=== PATIENT | female | born 1950 | race Caucasian/White ===

== ENCOUNTER 2018-07-17 11:40 | Day surgery (SDC) | payer MEDICARE, OTHER ==
[~2018-07-17] VITALS: Ht 165.1 cm; Wt 72.3 kg
[~2018-07-17 11:40] MED LIST: ASPI81CH PO; ATEN25 PO; Anastrozole1 GM PO; CALCIT950; CHLO25B; CHOL10002; FISH1000; Flonase 0.05% N16 GM; GLUC500 PO; HYDCHL12.5 PO; Hair, Skin & N1 EACH; MULT50L; OMEP20ER PO; POTA10T; PROBIOTIC1 EAC3; Potassium99 MG PO; SIMV10 PO; TIROSINT50 MCG PO; TOCO400 PO; XYZAL5 MG; ZOLP5 PO
--- NOTE | 2018-07-17 14:15 | NUR ---
07/17/18 1415 Olivia Vargas PT IN SDU AND WITH COMPLAINTS OF PAIN 6-7/10 RIGHT LOWER QUADRANT. STATES SHE WAS PAINFUL PREVIOUSLY, BUT THAT IT IS MORE ACHY NOW. DR RADFORD NOTIFIED, NO ORDERS GIVEN AT THIS TIME. VSS, PT TALKING AND ALERT, TOLERATING PO FLUIDS,WARM BLANKETS PROVIDED. PER PATIENT A HYDA SCAN IS SCHEDULED IN TWO WEEKS. WILL CONTINUE TO MONITOR AND PLAN FOR DISCHARGE WHEN PATIENT IS READY.
== END 2018-07-17 14:25 | disposition home or self-care (01) ==
LOC: ORSCSDS 11:40
PROVIDERS: Surgery
PROC: 0DBK8ZX Excision of Ascending Colon, Via Natural or Artificial Opening Endoscopic, Diagnostic (ICD-10-PCS; principal; 2018-07-17 13:00)
PROC: 0DJ08ZZ Inspection of Upper Intestinal Tract, Via Natural or Artificial Opening Endoscopic (ICD-10-PCS; principal; 2018-07-17 13:00)
DX: K21.0 Gastro-esophageal reflux disease with esophagitis (principal); D12.2 Benign neoplasm of ascending colon; K57.30 Diverticulosis of large intestine without perforation or abscess without bleeding; Z12.11 Encounter for screening for malignant neoplasm of colon; I10 Essential (primary) hypertension; E78.00 Pure hypercholesterolemia, unspecified; E03.9 Hypothyroidism, unspecified; Z79.82 Long term (current) use of aspirin; Z79.899 Other long term (current) drug therapy
CPT/HCPCS: 88305; J2405; J2704; J7120

== ENCOUNTER 2018-08-08 06:11 | Day surgery (SDC) | payer MEDICARE, OTHER ==
[~2018-08-08] VITALS: Ht 165.1 cm; Wt 70.5 kg
== END 2018-08-08 10:22 | disposition home or self-care (01) ==
LOC: ORSCSDS 06:11
PROVIDERS: Surgery
PROC: BF031ZZ Plain Radiography of Gallbladder and Bile Ducts using Low Osmolar Contrast (ICD-10-PCS; principal; 2018-08-08 07:30)
PROC: 0FT44ZZ Resection of Gallbladder, Percutaneous Endoscopic Approach (ICD-10-PCS; principal; 2018-08-08 07:30)
DX: K82.8 Other specified diseases of gallbladder (principal); I10 Essential (primary) hypertension; E03.9 Hypothyroidism, unspecified; K21.9 Gastro-esophageal reflux disease without esophagitis; E78.00 Pure hypercholesterolemia, unspecified; Z79.899 Other long term (current) drug therapy
CPT/HCPCS: 74300; 88304; A9270-GY; C1729; J0330; J1885; J2250; J2405; J2704; J2710; J3010; J7120

== ENCOUNTER 2018-08-10 10:18 | Emergency (ER) | payer MEDICARE, OTHER ==
[~2018-08-10] VITALS: Ht 165.1 cm; Wt 70.3 kg
[2018-08-10 11:03] LABS: BASOPHILS ABSOLUTE AUTO 0.05 K/mm3 (0.00-0.23); BASOPHILS PERCENT AUTO 1 % (0-2); EOSINOPHILS ABSOLUTE AUTO 0.09 K/mm3 (0.00-0.68); EOSINOPHILS PERCENT AUTO 1 % (0-6); Hematocrit 38.1 % (33.0-51.0); Hemoglobin 13.5 g/dL (11.5-16.0); IMMATURE GRAN ABSOLUTE AUTO 0.02 K/mm3 (0.00-0.10); IMMATURE GRAN PERCENT AUTO 0 % (0-1); LYMPHOCYTES ABSOLUTE AUTO 1.06 K/mm3 (0.84-5.20); LYMPHOCYTES PERCENT AUTO 15 % (21-46); MONOCYTES ABSOLUTE AUTO 0.61 K/mm3 (0.16-1.47); MONOCYTES PERCENT AUTO 9 % (4-13); Mean Corpuscular HGB 31.4 pg (26.0-34.0); Mean Corpuscular HGB Conc 35.4 g/dL (31.5-36.5); Mean Corpuscular Volume 89 fL (80-100); Mean Platelet Volume 9.5 fL (9.1-12.4); NEUTROPHILS ABSOLUTE AUTO 5.23 K/mm3 (1.96-9.15); NEUTROPHILS PERCENT AUTO 74 % (41-73); Platelet Count 294 K/mm3 (150-400); RDW Coefficient Variation 13.6 % (11.7-14.2); RDW Standard Deviation 44.2 fL (35.1-46.3); White Blood Cell Count 7.06 K/mm3 (4.00-11.30)
[2018-08-10 11:19] LABS: Alanine Aminotransfer (ALT/SGP 41 U/L (12-78); Albumin, Blood 3.9 g/dL (3.4-5.0); Albumin/Globulin Ratio 1.1 (0.8-1.8); Alk Phos 51 U/L (50-136); Anion Gap 8 mmol/L (6-16); Aspartate Aminotrans (AST/SGOT 33 U/L (12-37); Bilirubin, Total 0.9 mg/dL (0.1-1.0); Blood Urea Nitrogen 5 mg/dL (8-24); Bun/Creatinine Ratio 7.7 (12.0-20.0); CO2, Blood 33 mmol/L (21-32); Calcium, Blood 9.2 mg/dL (8.5-10.1); Chloride, Blood 86 mmol/L (98-108); Creatinine, Blood 0.65 mg/dL (0.40-1.00); Globulin, Blood 3.5 g/dL (2.2-4.0); Glomerular Filtration Rate >60 (60-); Glucose, Blood 110 mg/dL (70-99); Sodium, Blood 127 mmol/L (136-145); Total Protein, Blood 7.4 g/dL (6.4-8.2)
== END 2018-08-10 12:56 | disposition home or self-care (01) ==
LOC: ER 10:18
PROVIDERS: Emergency Medicine
DX: G89.18 Other acute postprocedural pain (principal); R10.11 Right upper quadrant pain; M25.511 Pain in right shoulder; Z88.2 Allergy status to sulfonamides; Z88.5 Allergy status to narcotic agent; Z88.8 Allergy status to other drugs, medicaments and biological substances; Z88.1 Allergy status to other antibiotic agents; Z79.899 Other long term (current) drug therapy; Z79.82 Long term (current) use of aspirin; Z85.3 Personal history of malignant neoplasm of breast; E03.9 Hypothyroidism, unspecified; I10 Essential (primary) hypertension; E78.5 Hyperlipidemia, unspecified
CPT/HCPCS: 36415; 74176; 80053; 83690; 85025; 96374; 96375; 99284-25; J2405; J3010

== ENCOUNTER 2019-01-23 06:38 | Day surgery (SDC) | payer MEDICARE, OTHER ==
[~2019-01-23] VITALS: Ht 165.1 cm; Wt 69.8 kg
[2019-01-23] MEDS ORDERED: ANASTROZOLE5 GM (07:12)
== END 2019-01-23 08:29 | disposition home or self-care (01) ==
LOC: ORSCSDS 06:38
PROVIDERS: Ophthalmology
PROC: 08RJ3JZ Replacement of Right Lens with Synthetic Substitute, Percutaneous Approach (ICD-10-PCS; principal; 2019-01-23 08:00)
DX: H25.11 Age-related nuclear cataract, right eye (principal); I10 Essential (primary) hypertension; E03.9 Hypothyroidism, unspecified; Z79.82 Long term (current) use of aspirin; Z79.899 Other long term (current) drug therapy
CPT/HCPCS: J2001; J2250; J3010; J3301; J7120; V2632

== ENCOUNTER 2019-02-20 07:50 | Day surgery (SDC) | payer MEDICARE, OTHER ==
[~2019-02-20] VITALS: Ht 165.1 cm; Wt 71.2 kg
[~2019-02-20 07:50] MED LIST changes: +ANASTROZOLE PO; +ANASTROZOLE5 GM; +ATEN50 PO; +CHLO4 PO; +Coral Calcium1 EAC3 PO; +Fish Oil 10001000 MG PO; +Multiple Vitam1 EACH PO; +OMEPRAZOLE20 MG PO; +POTA10T PO; +PROBIOTIC1 EAC1 PO; +Synthroid/Lev0.05 MG PO; +VITAMIN D32000 UNI3 PO; +VITAMIN E COMPLETE PO; +XYZAL5 MG PO; +Zocor20 MG PO
--- NOTE | 2019-02-20 09:22 | NUR ---
02/20/19 0922 Nevin Kwong IV DCD INTACT, NO BLEEDING , DRESSING APPLIED
== END 2019-02-20 09:35 | disposition home or self-care (01) ==
LOC: ORSCSDS 07:50
PROVIDERS: Ophthalmology
PROC: 08RK3JZ Replacement of Left Lens with Synthetic Substitute, Percutaneous Approach (ICD-10-PCS; principal; 2019-02-20 09:00)
DX: H25.12 Age-related nuclear cataract, left eye (principal); H18.51 Endothelial corneal dystrophy; I10 Essential (primary) hypertension; Z79.899 Other long term (current) drug therapy
CPT/HCPCS: J2001; J2250; J3010; J3301; J7040; V2632

== ENCOUNTER 2020-10-30 07:34 | Day surgery (SDC) | payer MEDICARE, OTHER ==
[~2020-10-30] VITALS: Ht 165.1 cm; Wt 75.6 kg
[2020-10-30] MEDS ORDERED: HYDCHL12.5 PO (08:31)
[2020-10-30] MEDS ORDERED: LORA10ER PO (08:33)
[2020-10-30] MEDS ORDERED: VITAMIN E400 UNIT PO (08:35)
--- NOTE | 2020-10-30 09:36 | NUR ---
10/30/20 0936 Benedicto Bello 0.15ML OF EPI 1MG/ML ADDED TO 30MG OF BUPIVICAINE 0.5% TO CREATE A SOLUTION OF BUPIVICAINE 0.5% WITH EPI 1:200,000.
== END 2020-10-30 10:34 | disposition home or self-care (01) ==
LOC: ORSCSDS 07:34
PROVIDERS: Podiatrist Foot & Ankle Surgery
PROC: 0JBR0ZZ Excision of Left Foot Subcutaneous Tissue and Fascia, Open Approach (ICD-10-PCS; principal; 2020-10-30 08:45)
DX: R22.42 Localized swelling, mass and lump, left lower limb (principal); I10 Essential (primary) hypertension; K21.9 Gastro-esophageal reflux disease without esophagitis; Z79.899 Other long term (current) drug therapy
CPT/HCPCS: 88307; J0171; J1100; J2250; J2405; J2704; J3010; J7120

== ENCOUNTER → 2020-12-28 | Outpatient (CLI) | payer MEDICARE, OTHER ==
[~2020-12-28] MED LIST changes: +LORA10ER PO; +VITAMIN E400 UNIT PO
== END | disposition home or self-care (01) ==
LOC: LAB SHORT 13:25
DX: N39.0 Urinary tract infection, site not specified (principal)
CPT/HCPCS: 87086

== ENCOUNTER → 2021-02-17 | Outpatient (CLI) | payer MEDICARE, OTHER | END | disposition home or self-care (01) | LOC: LAB 13:37 → LAB SHORT 13:37 | DX: R07.89 Other chest pain (principal); R13.10 Dysphagia, unspecified | CPT/HCPCS: 87338 ==

== ENCOUNTER 2021-03-09 10:12 | Day surgery (SDC) | payer MEDICARE, OTHER ==
[~2021-03-09] VITALS: Ht 165.1 cm; Wt 72.8 kg
== END 2021-03-09 12:55 | disposition home or self-care (01) ==
LOC: ORSCSDS 10:12
PROVIDERS: Surgery
PROC: 0DB68ZX Excision of Stomach, Via Natural or Artificial Opening Endoscopic, Diagnostic (ICD-10-PCS; principal; 2021-03-09 11:30)
DX: K21.9 Gastro-esophageal reflux disease without esophagitis (principal); K44.9 Diaphragmatic hernia without obstruction or gangrene; I10 Essential (primary) hypertension; E78.5 Hyperlipidemia, unspecified; E05.90 Thyrotoxicosis, unspecified without thyrotoxic crisis or storm; Z79.899 Other long term (current) drug therapy
CPT/HCPCS: 88305; 88342; J2704; J7120

== ENCOUNTER → 2021-06-18 | Outpatient (CLI) | payer MEDICARE, OTHER | END | disposition home or self-care (01) | LOC: LAB SHORT 13:35 | DX: R30.9 Painful micturition, unspecified (principal) | CPT/HCPCS: 87086 ==

== ENCOUNTER → 2021-11-29 | Outpatient (CLI) | payer MEDICARE | END | disposition home or self-care (01) | LOC: LAB SHORT 12:16 → LAB 12:16 | DX: N39.0 Urinary tract infection, site not specified (principal) | CPT/HCPCS: 87077; 87086; 87186 ==

== ENCOUNTER → 2022-08-23 | Outpatient (CLI) | payer OTHER ==
[~2022-08-23] MED LIST changes: +AMBIEN5 MG PO; +ATEN100 PO; +CALCIUM MAG D PO; +CARV3.125 PO; -Coral Calcium1 EAC3 PO; +EUTHYROX50 MC1 PO; +LOSARTAN POTAS100 M1 PO; -Multiple Vitam1 EACH PO; +ONE DAILY ESS400 MCG PO; +PROBIOTIC PO; -PROBIOTIC1 EAC1 PO; +Simvastatin20 MG PO; +THERA-D2000 UNIT PO
[2022-08-23 11:16] LABS: Albumin, Blood 4.5 g/dL (3.4-5.0); Albumin/Globulin Ratio 1.2 (0.8-1.8); Bilirubin, Total 0.6 mg/dL (0.1-1.0); Bun/Creatinine Ratio 22.1 (12.0-20.0); Calcium, Blood 9.5 mg/dL (8.5-10.1); Creatinine, Blood 0.86 mg/dL (0.40-1.00); Globulin, Blood 3.8 g/dL (2.2-4.0); Potassium, Blood 3.8 mmol/L (3.5-5.5); Total Protein, Blood 8.3 g/dL (6.4-8.2)
== END | disposition home or self-care (01) ==
LOC: LAB 10:59 → LAB SHORT 10:59
PROVIDERS: Family Medicine
DX: R07.9 Chest pain, unspecified (principal)
CPT/HCPCS: 80053; 84484

== ENCOUNTER 2023-02-25 09:08 | Observation (INO) | payer OTHER ==
[~2023-02-25] VITALS: Ht 165.1 cm; Wt 77.0 kg
[2023-02-25] MEDS ORDERED: ATEN25 PO (09:47)
[2023-02-25 09:48] LABS: BASOPHILS ABSOLUTE AUTO 0.08 K/mm3 (0.00-0.23); BASOPHILS PERCENT AUTO 1 % (0-2); EOSINOPHILS ABSOLUTE AUTO 0.08 K/mm3 (0.00-0.68); EOSINOPHILS PERCENT AUTO 1 % (0-6); Hematocrit 39.2 % (33.0-51.0); Hemoglobin 13.9 g/dL (11.5-16.0); IMMATURE GRAN ABSOLUTE AUTO 0.09 K/mm3 (0.00-0.10); IMMATURE GRAN PERCENT AUTO 1 % (0-1); LYMPHOCYTES ABSOLUTE AUTO 1.47 K/mm3 (0.84-5.20); LYMPHOCYTES PERCENT AUTO 14 % (21-46); MONOCYTES ABSOLUTE AUTO 0.97 K/mm3 (0.16-1.47); MONOCYTES PERCENT AUTO 9 % (4-13); Mean Corpuscular HGB 29.2 pg (26.0-34.0); Mean Corpuscular HGB Conc 35.5 g/dL (31.5-36.5); Mean Corpuscular Volume 82 fL (80-100); Mean Platelet Volume 10.1 fL (9.1-12.4); NEUTROPHILS PERCENT AUTO 75 % (41-73); Platelet Count 330 K/mm3 (150-400); RDW Coefficient Variation 13.5 % (11.7-14.2); RDW Standard Deviation 40.5 fL (35.1-46.3); Red Blood Cell Count 4.76 M/mm3 (3.80-5.20); White Blood Cell Count 10.89 K/mm3 (4.00-11.30)
[2023-02-25] MEDS ORDERED: CHLO25B PO (09:48)
[2023-02-25 10:13] LABS: Albumin, Blood 4.1 g/dL (3.4-5.0); Albumin/Globulin Ratio 1.1 (0.8-1.8); Bilirubin, Total 0.5 mg/dL (0.1-1.0); Bun/Creatinine Ratio 15.5 (12.0-20.0); Calcium, Blood 9.3 mg/dL (8.5-10.1); Creatinine, Blood 0.71 mg/dL (0.40-1.00); Globulin, Blood 3.9 g/dL (2.2-4.0); Magnesium, Blood 1.9 mg/dL (1.6-2.4); Potassium, Blood 3.6 mmol/L (3.5-5.5); Thyroid Stimulating Hormone 4.06 uIU/mL (0.360-4.800)
[2023-02-25 13:39] VITALS: BP 133/75
--- NOTE | 2023-02-25 17:17 | NUR ---
ADMIT/SHIFT SUMMARY: PT A&O X4. PLEASANT AND COOPERATIVE WITH CARE. PT ARRIVED TO ROOM 331 @1335 VIA GURNEY. PT ABLE TO TRANSFER TO BED A SB ASSIST. IV IN RAC PATENT. INFUSING 2/2 BAG NS @200/HR. LAB ARRIVED TO ROOM SHORTLY AFTER ADMIT. NA INCREASED FROM 121 TO 126. REPEAT LAB TO BE COMPLETED ON CROZE MACHINE OPERATOR. UR RANDOM SODIUM SENT TO LAB. 24HR URINE STARTED @1515 IN BUCKET WITH ICE IN BATHROOM. TELE IN PLACE RUNNING SINUS RHYHTM IN 60'S. AT BEDSIDE. CALL LIGHT IN REACH. BED IN LOWEST POSITION.
[2023-02-25 20:17] VITALS: BP 125/82
[2023-02-26 03:12] VITALS: BP 133/72
--- NOTE | 2023-02-26 03:36 | NUR ---
SHIFT SUMMARY PT HAS RESTED MOST OF THE NIGHT. SODIUM IS TRENDING UP SLOWLY WITH PM LABS. PT HAS COMPLETED NORMAL SALINE INFUSIONS. SHE REPORTS THAT OVERALL SHE IS FEELING ALOT BETTER. SHE DENIES N/V OR PAIN. VITALS ARE STABLE, 24 HOUR URINE IN PROGRESS. BED IN LOWEST POSITION, CALL LIGHT WITHIN REACH.
[2023-02-26 07:13] VITALS: BP 141/82
[2023-02-26 10:57] LABS: BASOPHILS ABSOLUTE AUTO 0.09 K/mm3 (0.00-0.23); BASOPHILS PERCENT AUTO 1 % (0-2); EOSINOPHILS ABSOLUTE AUTO 0.11 K/mm3 (0.00-0.68); EOSINOPHILS PERCENT AUTO 1 % (0-6); Hematocrit 37.1 % (33.0-51.0); IMMATURE GRAN ABSOLUTE AUTO 0.07 K/mm3 (0.00-0.10); IMMATURE GRAN PERCENT AUTO 1 % (0-1); LYMPHOCYTES ABSOLUTE AUTO 1.63 K/mm3 (0.84-5.20); LYMPHOCYTES PERCENT AUTO 16 % (21-46); MONOCYTES ABSOLUTE AUTO 0.83 K/mm3 (0.16-1.47); MONOCYTES PERCENT AUTO 8 % (4-13); Mean Corpuscular HGB 29.2 pg (26.0-34.0); Mean Corpuscular Volume 83 fL (80-100); Mean Platelet Volume 9.8 fL (9.1-12.4); NEUTROPHILS ABSOLUTE AUTO 7.25 K/mm3 (1.96-9.15); NEUTROPHILS PERCENT AUTO 73 % (41-73); Platelet Count 304 K/mm3 (150-400); RDW Coefficient Variation 13.7 % (11.7-14.2); Red Blood Cell Count 4.45 M/mm3 (3.80-5.20); White Blood Cell Count 9.98 K/mm3 (4.00-11.30)
[2023-02-26 11:09] LABS: Bun/Creatinine Ratio 14.6 (12.0-20.0); Calcium, Blood 8.9 mg/dL (8.5-10.1); Creatinine, Blood 0.62 mg/dL (0.40-1.00); Potassium, Blood 3.9 mmol/L (3.5-5.5)
[2023-02-26 16:10] LABS: Calcium, Urine <5.0 mg/dL (< 17.5)
[2023-02-26 16:12] LABS: Calcium, Urine Calculation Unable to Calculate mg/24hrs (42.0-353.0)
--- NOTE | 2023-02-26 17:43 | NUR ---
DISCHARGE NOTE- PT WAS GIVEN VERBAL ANE WRITTEN DISCHARGE INSTRUCTIONS AND ACKNOWLEDGED UNDERSTANDING OF THEM. NO NEW MEDS. ONE FAVIOLA MED DC'D PT ACKNOWLEDGED THIS WELL. IV AND TELE DC'D PRIOR TO DISCHARGE. 24 HOUR URINE COLLECTION COMPLETED AND TAKEN TO LAB PRIOR TO PT DISCHARGE.
== END 2023-02-26 15:55 | disposition home or self-care (01) ==
LOC: ER 09:08 → MEDS 09:09
PROVIDERS: Emergency Medicine; ADMIT Internal Medicine
DX: E87.1 Hypo-osmolality and hyponatremia (principal); I10 Essential (primary) hypertension; E11.9 Type 2 diabetes mellitus without complications; K21.9 Gastro-esophageal reflux disease without esophagitis; E03.9 Hypothyroidism, unspecified; Z88.5 Allergy status to narcotic agent; Z88.2 Allergy status to sulfonamides; Z88.8 Allergy status to other drugs, medicaments and biological substances; Z79.899 Other long term (current) drug therapy
CPT/HCPCS: 36415; 80048; 80053; 82340; 83735; 84295; 84300; 84443; 85025; 93005; 93010; 96360; 96361; 99284-25; A9270; G0378; J7030

== ENCOUNTER 2024-06-12 11:15 | Day surgery (SDC) | payer OTHER ==
[~2024-06-12 11:15] MED LIST changes: +CALCIUM CIT 311 EAC7 PO; +CHLO25B PO; -EUTHYROX50 MC1 PO; +EUTHYROX75 MC1 PO; +GABA100 PO; +POTCHL20ER PO
--- NOTE | 2024-06-12 11:41 | NUR ---
PT AMB INTO SDS FOR L TKA PER DR. HU. PT CONTACTED DR. HU'S OFFICE YESTERDAY W/ CONCERN OF A RED 2ND TOE ON LEFT FOOT. PT'S FOOT ASSESSED PER THIS RN. TOE VERY RED AT TOP AND AROUND TOE NAIL. NO VISIBLE TRACKING. NO DRAINAGE NOTED EVEN WHEN PT SQUEEZES TOE. PT STATES "IT IS NOT MORE PAINFUL THAN HER OTHER TOES" BUT SHE HAS NEUROPATHY. PHOTO TAKEN W/ PT'S VERBAL PERMISSION AND SHOWN TO DR. HU. CASE CX PT WILL RESCHEDULE W/ OFFICE.
== END 2024-06-12 23:00 | disposition home or self-care (01) ==
LOC: ORSCMMR 11:15
DX: M17.12 Unilateral primary osteoarthritis, left knee (principal); Z53.9 Procedure and treatment not carried out, unspecified reason

== ENCOUNTER 2024-06-26 13:32 | Inpatient (IN) | payer OTHER ==
[~2024-06-26] VITALS: Ht 165.1 cm; Wt 68.4 kg
[2024-06-26 15:07] LABS: BASOPHILS ABSOLUTE AUTO 0.08 K/mm3 (0.00-0.23); BASOPHILS PERCENT AUTO 1 % (0-2); EOSINOPHILS ABSOLUTE AUTO 0.16 K/mm3 (0.00-0.68); EOSINOPHILS PERCENT AUTO 2 % (0-6); Hematocrit 41.5 % (33.0-51.0); Hemoglobin 14.3 g/dL (11.5-16.0); IMMATURE GRAN ABSOLUTE AUTO 0.02 K/mm3 (0.00-0.10); IMMATURE GRAN PERCENT AUTO 0 % (0-1); LYMPHOCYTES ABSOLUTE AUTO 1.75 K/mm3 (0.84-5.20); LYMPHOCYTES PERCENT AUTO 26 % (21-46); MONOCYTES ABSOLUTE AUTO 0.54 K/mm3 (0.16-1.47); MONOCYTES PERCENT AUTO 8 % (4-13); Mean Corpuscular HGB Conc 34.5 g/dL (31.5-36.5); Mean Corpuscular Volume 90 fL (80-100); Mean Platelet Volume 10.5 fL (9.1-12.4); NEUTROPHILS ABSOLUTE AUTO 4.17 K/mm3 (1.96-9.15); NEUTROPHILS PERCENT AUTO 62 % (41-73); Platelet Count 260 K/mm3 (150-400); RDW Coefficient Variation 12.8 % (11.7-14.2); RDW Standard Deviation 41.8 fL (35.1-46.3); Red Blood Cell Count 4.62 M/mm3 (3.80-5.20); White Blood Cell Count 6.72 K/mm3 (4.00-11.30)
[2024-06-26 15:28] LABS: Albumin, Blood 4.4 g/dL (3.4-5.0); Albumin/Globulin Ratio 1.4 (0.8-1.8); Bilirubin, Total 0.4 mg/dL (0.1-1.0); Bun/Creatinine Ratio 25.9 (12.0-20.0); Calcium, Blood 9.7 mg/dL (8.5-10.1); Creatinine, Blood 0.69 mg/dL (0.40-1.00); Globulin, Blood 3.2 g/dL (2.2-4.0); Potassium, Blood 3.8 mmol/L (3.5-5.5); Total Protein, Blood 7.6 g/dL (6.4-8.2)
[2024-06-26] MEDS ORDERED: HydrALAZINE HCl 20 MG / ML 1ML Vial IV ONE (19:45)
[2024-06-26] MEDS ORDERED: Ondansetron HCl 2 MG / ML 2ML Vial IV PRN (20:50)
[2024-06-26] MEDS ORDERED: NS 1,000 ML IV SCH (20:50)
[2024-06-26] MEDS ORDERED: Labetalol HCL 5 MG/ML 4ML Injection (Single Dose) IV PRN (20:55)
[2024-06-26] MEDS ORDERED: Aspirin 81 MG Chew PO SCH (21:00)
[2024-06-26] MEDS ORDERED: Acetaminophen 325 MG TABLET PO PRN (22:55)
[2024-06-26 23:06] VITALS: BP 183/92
[2024-06-27] VITALS (14 sets, daily range): BP systolic 159–209; BP diastolic 88–123
--- NOTE | 2024-06-27 00:43 | NUR ---
Admission note: Patient AOX4, arrived to unit from the ED for CVA and HTN, On Tele, w/ NSR HRs 70's 80's. While arriving to unit, pt complained of a headache w/ a 3/10 pain, consulted doctor for pain managment, see EMAR for further orders. HTN since arrival below threshold for pharmacological intervention, continuing to monitor Pt was reported to have right sided defecits but on assessment pt had reported her symptoms have improved, see shift assessment for further details. 1PA w/ FWW, pt responds appropiately to staff and cooperative with her care. Bed is at appropiate height and call light within reach.
--- NOTE | 2024-06-27 04:31 | NUR ---
REVIEWED AND AGREE WITH ALL CHOCOLATE FINISHER OPERATOR DOCUMENTATION
--- NOTE | 2024-06-27 04:33 | NUR ---
SHIFT SUMMARY. SHIFT HAS GONE WELL OVERALL SINCE ADMISSION. PT HAS BEEN ABLE TO REST COMFORTABLY SINCE ADMISSION, NO ACUTE CHANGES NEURO OR OTHERWISE. BP HAS BEEN ELEVATED THROUGHOUT SHIFT, REMAINS UNDER THRESHHOLD FOR ADMINISTRATION OF LABETALOL. CONTINUING TO MONITOR. REPORTED HEADACHE EARLY IN SHIFT THAT HAS SINCE SUBSIDED. CONTINUES TO RUN SINUS ON TELE. CONTINUES TO MAINTAIN ADEQUATE SATURATION ON ROOM AIR. ADMISSION PROCESS COMPLETED PER PROTOCOL. WORTH NOTING WHEN ASKED ABOUT CURRENT CODE STATUS, PT WAS UNCLEAR ON WHAT SHE WOULD LIKE HER CODE STATUS TO BE AND REPORTED THAT HER PCP REBECCA GARCIA SHOULD HAVE HER CODE STATUS INFORMATION AND RECOMMENDED CALLING HER OFFICE IN THE MORNING SHE DID NOT WANT TO MAKE ANY DECISIONS AT TIME OF QUESTIONING. OKAY WITH KEEPING CODE STATUS IS FOR TIME BEING. OTHERWISE SHIFT HAS BEEN UNREMARKABLE. BED LOCKED IN LOWEST POSITION. CALL LIGHT LEFT WITHIN REACH. CONTINUING TO MONITOR.
--- NOTE | 2024-06-27 05:20 | NUR ---
SPOKE WITH DR. DEJESUS TO NOTIFY THAT HOME MEDICATION LIST HAS BEEN RECONCILED. ALSO INQUIRED ABOUT NEED FOR FLUIDS AND CONTINUED HIGH BP. DR. DEJESUS DCd CONTINUOUS FLUIDS AND ORDERED HOME DOSE LOSARTAN 50 MG BID. ENTERING ORDERS NOW. CONTINUING TO MONITOR.
[2024-06-27] MEDS ORDERED: Omeprazole 20 MG CapCR PO SCH (06:00)
[2024-06-27] MEDS ORDERED: Losartan Potassium 50 MG Tab PO SCH (09:00)
[2024-06-27] MEDS ORDERED: Enoxaparin 40 MG/0.4 ML SYR SC SCH (09:00)
--- NOTE | 2024-06-27 09:01 | NUR ---
NIH SCALE PREFORMED WITH OUTGOING NURSE KEVIN Ramirez. AGREEMENT ON SCALE WITH NIH SCORE-4. KEVIN STATED THERE WERE NO CHANGES IN PHYSICAL/MENTAL IN THE PT'S ASSESSMENT. KEVIN RN STATED IT WAS MISJUDGEMENT IN SCALE. PER PROTOCOL, THIS RN DID NOTIFY DR. MCGRATH OF 2 POINT CHANGE IN THE SCALE AND THIS RN EXPLAINED THE CIRCUMSTANCES. DR. MCGRATH STATED TO REPEAT IN FOUR HOURS POST ASSESSMENT AND CONTINUE TO FOLLOW PROTOCOL. WHILE ON THE PHONE THIS RN ASKED FOR BP PARAMETERS. DR. MCGRATH WOULD LIKE SBP 160-180. SEE NOTES FOR UPDATES.
[2024-06-27] MEDS ORDERED: LORazepam 2 MG/ML 1ML Injection IV ONE (10:35)
[2024-06-27 12:13] LABS: CHOL/HDL RATIO 2.7; Cholesterol 171 mg/dL (50-200); HDL Cholesterol 64 mg/dL (>39); LDL/HDL RATIO 1.3; Low Density Lipoprotein Chol 83 mg/dL (0-110); Triglycerides 120 mg/dL (30-160); Very Low Density Lipoprot Chol 24 mg/dL (6-32)
[2024-06-27] MEDS ORDERED: Acetaminophen 325 MG TABLET PO ONE (14:20)
[2024-06-27] MEDS ORDERED: Pantoprazole Sodium 40 MG Tab PO SCH (16:30)
[2024-06-27] MEDS ORDERED: Diltiazem HCl 180 MG Cap.CD PO SCH (17:00)
--- NOTE | 2024-06-27 17:33 | NUR ---
END OF SHIFT SUMMARY PT IS A&OX4, NIH-4, SLURRED SPEECH AND RIGHT SIDED DRIFT; PER YESICA MARCUS. PT HAS HAD A CONTINUOUS HEADACHE T/O THE SHIFT THAT IS MADE WORSE W/ STIMULATION. PAIN 07/27-10/27. MEDICATIONS PER EMAR. PT IS SR/ST 90'S-100'S ON TELE, W/ FHB. HER BLOOD PRESSURE HAS BEEN ELEVATED WITH A SYSTOLIC IN THE 200S AND DIASTOLIC IN THE 100S. PT HAS A HX OF HTN. YESICA MARCUS SPOKE WITH DR. SCALES AND A PERMISSIVE BP PARAMETER OF SYSTOLIC 160-180 WAS SET, SEE NOTES FOR DETAILS. BP IS BEING MANAGED PER EMAR ORDERS. PT MAINTAINS O2 >90% ON RA, DENIES SOB. PALLIATIVE CARE CAME TO BEDSIDE TO DISCUSS POLST. PT TO REMAIN FULL CODE AMD WILL DISCUSS THIS WITH HER SON WHO IS A DOCTOR 06/28. DR. GONSALEZ CAME TO BEDSIDE AND WOULD LIKE THE PT TO DISCHARGE ON A ZIO PATCH FOR 14 DAYS. PT'S AT BEDSIDE, UPDATED ON CARE.
--- NOTE | 2024-06-27 18:10 | NUR ---
PALLIATIVE CARE NOTE: CALL FROM PRIMARY RN PT WANTS TO DISCUSS COMPLETING A POLST. PT AND SPOUSE CASSIDY IN ROOM. PT IS ABLE TO HAVE MEANINGFUL DISCUSSION. PT HAS ADVANCE DIRECTIVE. MADE A COPY AND SENT TO MEDICAL RECORDS TO BE FILED IN MEDICAL CHART. PT AND SPOUSE EDUCATED ON POLST FORM, CPR VS DNR WITH SELECTIVE VS DNR WITH COMFORT MEASURES. PT WANTS TO WAIT TO DISCUSS CHOICES WITH FAMILY ARRIVING TO [facility] TOMORROW. PT TO REMAIN A FULL CODE.
[2024-06-27] MEDS ORDERED: Gabapentin 100 MG Cap PO SCH (21:00)
[2024-06-27] MEDS ORDERED: Calcium 500 MG/Vit D 200 Units Tab PO SCH (21:00)
[2024-06-28 00:18] VITALS: BP 141/77
[2024-06-28 04:16] LABS: BASOPHILS ABSOLUTE AUTO 0.08 K/mm3 (0.00-0.23); BASOPHILS PERCENT AUTO 1 % (0-2); EOSINOPHILS ABSOLUTE AUTO 0.16 K/mm3 (0.00-0.68); EOSINOPHILS PERCENT AUTO 2 % (0-6); Hematocrit 38.5 % (33.0-51.0); Hemoglobin 13.2 g/dL (11.5-16.0); IMMATURE GRAN ABSOLUTE AUTO 0.01 K/mm3 (0.00-0.10); IMMATURE GRAN PERCENT AUTO 0 % (0-1); LYMPHOCYTES PERCENT AUTO 32 % (21-46); MONOCYTES ABSOLUTE AUTO 0.78 K/mm3 (0.16-1.47); MONOCYTES PERCENT AUTO 12 % (4-13); Mean Corpuscular HGB 30.8 pg (26.0-34.0); Mean Corpuscular HGB Conc 34.3 g/dL (31.5-36.5); Mean Corpuscular Volume 90 fL (80-100); Mean Platelet Volume 10.9 fL (9.1-12.4); NEUTROPHILS ABSOLUTE AUTO 3.43 K/mm3 (1.96-9.15); NEUTROPHILS PERCENT AUTO 52 % (41-73); Platelet Count 253 K/mm3 (150-400); RDW Coefficient Variation 12.9 % (11.7-14.2); RDW Standard Deviation 42.5 fL (35.1-46.3); Red Blood Cell Count 4.29 M/mm3 (3.80-5.20); White Blood Cell Count 6.56 K/mm3 (4.00-11.30)
[2024-06-28 04:27] VITALS: BP 150/75
[2024-06-28 04:46] LABS: Bun/Creatinine Ratio 20.1 (12.0-20.0); Calcium, Blood 9.2 mg/dL (8.5-10.1); Creatinine, Blood 0.65 mg/dL (0.40-1.00); Potassium, Blood 3.5 mmol/L (3.5-5.5); Thyroid Stimulating Hormone 1.09 uIU/mL (0.360-4.800)
--- NOTE | 2024-06-28 05:05 | NUR ---
SHIFT SUMMARY: PT HERE FOR CVA R SIDED DEFICITS, NIHSS SCORE OF 4, PT ENDORSES JONES WITH PRN APA EFFECTIVE FOR RELIE, PERMISSIVE HTN ORDER, PT DID NOT MEET CRITERIA FOR PRN ADMINISTRATION OF B/P MEDICATION, RA LUNGS CLEAR, NSR ON TELE, GEN THIN DIET ABLE TO SWALLOW PILLS WHOLE, SLIGHT SLURRED SPEECH AND WORD FINDING NOTED, PT IS A ONE PERSON FWW TO AND FROM BATHROOM, ABLE TO USE CALL LIGHT AND MAKE HER NEEDS KNOWN, CALL LIGHT AND PERSONAL ITEMS WITH IN REACH AT THIS TIME.
[2024-06-28] MEDS ORDERED: Levothyroxine Sodium 0.075 MG Tab PO SCH (06:00)
[2024-06-28 08:57] VITALS: BP 155/87
[2024-06-28] MEDS ORDERED: Clopidogrel Bisulfate 75 MG Tab PO SCH (09:00)
[2024-06-28] MEDS ORDERED: Atenolol 25 MG Tab PO SCH (09:00)
[2024-06-28] MEDS ORDERED: Potassium Chloride 20 MEQ TabCR PO SCH (09:00)
[2024-06-28] MEDS ORDERED: Atorvastatin 40 MG Tab PO SCH (09:00)
[2024-06-28] MEDS ORDERED: Multivitamins 1 Tab PO SCH (09:00)
[2024-06-28] MEDS ORDERED: Vitamin E 400 Intn'l Units Cap PO SCH (09:00)
[2024-06-28] MEDS ORDERED: Loratadine 10 MG Tab PO SCH (09:00)
[2024-06-28] MEDS ORDERED: Fluticasone 0.05% Nasal Spray SCH (09:00)
[2024-06-28] MEDS ORDERED: ASPI81CH PO (09:48)
[2024-06-28] MEDS ORDERED: ATOR80 PO (09:48)
[2024-06-28] MEDS ORDERED: CLOP75 PO (09:49)
[2024-06-28] MEDS ORDERED: PANT40 PO (09:50)
[2024-06-28] MEDS ORDERED: CARDIZEM CD180 M1 PO (09:50)
[2024-06-28 11:18] VITALS: BP 151/87
--- NOTE | 2024-06-28 12:45 | NUR ---
DISCHARGE SUMMARY PT A&Ox4, CALLS AND COMMUNICATES NEEDS APPROPRIATELY. NHISS 4. PT COOPERATIVE WITH PT/OT AND MAKING GOOD PROGRESS. BP STABLE, SINUS 90's, DENIES CP/PRESSURE. SpO2> 92% RA, DENIES SOB. 1 ASSIST WITH FWW. CONTINENT OF URINE AND BOWEL. DISCHARGE INSTRUCTIONS PROVIDED WITH AT BEDSIDE. ZIO PATCH PLACED BY REP. ALL PT BELONGINGS SENT WITH . PT TAKEN OUT VIA WHEELCHAIR AT APPROXIMATELY 1230.
== END 2024-06-28 12:26 | disposition home or self-care (01) | DRG 65 ==
LOC: ER 13:32 → ERHOLD 20:48 → PCU 20:48
PROVIDERS: Family Medicine; Student in an Organized Health Care Education/Training Program; ADMIT Student in an Organized Health Care Education/Training Program
DX: I63.032 Cerebral infarction due to thrombosis of left carotid artery (principal); G81.94 Hemiplegia, unspecified affecting left nondominant side; I16.1 Hypertensive emergency; R47.81 Slurred speech; I10 Essential (primary) hypertension; E78.5 Hyperlipidemia, unspecified; E03.9 Hypothyroidism, unspecified; Z85.3 Personal history of malignant neoplasm of breast; Z88.5 Allergy status to narcotic agent; Z88.2 Allergy status to sulfonamides; Z88.8 Allergy status to other drugs, medicaments and biological substances; Z79.890 Hormone replacement therapy; Z79.899 Other long term (current) drug therapy; Z90.710 Acquired absence of both cervix and uterus; Z96.641 Presence of right artificial hip joint; Z90.11 Acquired absence of right breast and nipple
CPT/HCPCS: 36415; 70450; 70551; 80048; 80053; 80061; 82947; 84443; 84484; 85025; 92610; 93005; 93010; 93246; 93306; 93880; 96374; 97112; 97116; 97162; 97165; 97535; 99285-25; A9270; J0360; J1650; J2060; J2405; J7030

== ENCOUNTER → 2024-11-25 | Outpatient (CLI) | payer OTHER ==
[~2024-11-25] MED LIST changes: +ATOR80 PO; +CARDIZEM CD180 M1 PO; +CLOP75 PO; +PANT40 PO
== END ==
LOC: LAB 14:14 → LAB SHORT 14:14
DX: N39.0 Urinary tract infection, site not specified (principal)
CPT/HCPCS: 87077; 87086; 87186

== ENCOUNTER 2025-01-26 04:29 | Observation (INO) | payer OTHER ==
[~2025-01-26] VITALS: Ht 165.1 cm; Wt 73.8 kg
[~2025-01-26 04:29] MED LIST changes: -CARDIZEM CD180 M1 PO; +DILTIAZEM 24HR300 M2 PO
[2025-01-26 05:21] LABS: BASOPHILS ABSOLUTE AUTO 0.09 K/mm3 (0.00-0.23); BASOPHILS PERCENT AUTO 1 % (0-2); EOSINOPHILS ABSOLUTE AUTO 0.10 K/mm3 (0.00-0.68); EOSINOPHILS PERCENT AUTO 1 % (0-6); Hematocrit 43.8 % (33.0-51.0); Hemoglobin 15.2 g/dL (11.5-16.0); IMMATURE GRAN ABSOLUTE AUTO 0.11 K/mm3 (0.00-0.10); IMMATURE GRAN PERCENT AUTO 1 % (0-1); LYMPHOCYTES ABSOLUTE AUTO 2.02 K/mm3 (0.84-5.20); LYMPHOCYTES PERCENT AUTO 22 % (21-46); MONOCYTES ABSOLUTE AUTO 0.87 K/mm3 (0.16-1.47); MONOCYTES PERCENT AUTO 9 % (4-13); Mean Corpuscular HGB Conc 34.7 g/dL (31.5-36.5); Mean Corpuscular Volume 92 fL (80-100); NEUTROPHILS ABSOLUTE AUTO 6.16 K/mm3 (1.96-9.15); NEUTROPHILS PERCENT AUTO 66 % (41-73); NRBC ABSOLUTE 0.00 K/mm3 (0.00-0.02); NRBC Auto 0.0 /100 WBC (0.0-0.2); RDW Coefficient Variation 14.3 % (11.7-14.2); RDW Standard Deviation 48.4 fL (35.1-46.3)
[2025-01-26 05:22] LABS: Alanine Aminotransfer (ALT/SGP 57.0 U/L (12-78); Albumin, Blood 4.3 g/dL (3.4-5.0); Albumin/Globulin Ratio 1.2 (0.8-1.8); Anion Gap 9.0 mmol/L (3-11); Aspartate Aminotrans (AST/SGOT 43.0 U/L (12-37); Bilirubin, Total 0.7 mg/dL (0.1-1.0); Blood Urea Nitrogen 11.0 mg/dL (8-24); CO2, Blood 27.0 mmol/L (21-32); Calcium, Blood 10.1 mg/dL (8.5-10.1); Chloride, Blood 104.0 mmol/L (98-108); Creatinine, Blood 0.62 mg/dL (0.40-1.00); Globulin, Blood 3.6 g/dL (2.2-4.0); Glucose, Blood 181.0 mg/dL (70-99); Potassium, Blood 3.9 mmol/L (3.5-5.5); Sodium, Blood 136.0 mmol/L (136-145); Total Protein, Blood 7.9 g/dL (6.4-8.2)
[2025-01-26 05:27] LABS: Platelet Count 237 K/mm3 (150-400)
[2025-01-26 06:40] LABS: Source, Urine Clean Catch
[2025-01-26 06:52] LABS: Bilirubin, Urine Neg (Neg); Glucose Qualitative, Urine Neg (Neg); Ketones, Urine Neg (Neg); Leukocyte Esterase, Urine Neg (Neg); Protein, Urine Neg (Neg); Specific Gravity, Urine 1.015 (1.003-1.022); Urobilinogen, Urine NORM (Normal)
[2025-01-26 06:55] LABS: Color, Urine Pale Yellow (P-Yellow)
[2025-01-26] MEDS ORDERED: OMEP20ER PO (07:29)
[2025-01-26] MEDS ORDERED: ZOLP5 PO (07:29)
[2025-01-26] MEDS ORDERED: LORazepam 2 MG/ML 1ML Injection IV PRN ×2 (08:00→08:05)
[2025-01-26 10:15] LABS: CHOL/HDL RATIO 2.5; Cholesterol 183 mg/dL (50-200); HDL Cholesterol 74 mg/dL (>39); LDL/HDL RATIO 1.0; Low Density Lipoprotein Chol 73 mg/dL (0-110); Triglycerides 182 mg/dL (30-160); Very Low Density Lipoprot Chol 36 mg/dL (6-32)
[2025-01-26 10:42] VITALS: BP 183/97
[2025-01-26] MEDS ORDERED: ZYRTEC10 M2 PO (11:16)
[2025-01-26 15:47] VITALS: BP 159/98
[2025-01-26] MEDS ORDERED: Insulin Human Lispro 100 Units/ML 3ML Syringe SC SCH (16:30)
--- NOTE | 2025-01-26 18:03 | NUR ---
SHIFT SUMMARY PT AOX4, COOPERATIVE, ABLE TO MAKE NEEDS KNOWN. PT IS 1 PERSON ASSIST TO COMMODE FOR VOIDING. UTILIZING BED/CHAIR ALARM FOR IMPULSIVITY. PT TOLERTING MEDICATIONS AND TOLERATING DIET AND THIN LIQUIDS. PT DOES HAVE SLURRED SPEECH BUT CAN BE UNDERSTOOD WITH EASE. ON ROOM AIR, ON TELE. ALLOWING PERMISSIVE HTN. BED IN LOWEST POSIITON, CALL LIGHT WIHTIN REACH.
[2025-01-26 19:24] VITALS: BP 170/100
[2025-01-26] MEDS ORDERED: Calcium Citrate 315 MG/Vitamin D 250 IU Tab PO SCH (21:00)
[2025-01-27] VITALS (8 sets, daily range): BP systolic 146–185; BP diastolic 94–110
--- NOTE | 2025-01-27 04:02 | NUR ---
SHIFT SUMMARY; PATIENT SLEPT IN LONG INTERVALS, WAS UP TO BS A FEW TIMES. NO CHANGE IN NEURO EVAL, C/O HEADACHE SINCE ADMIT, TYLENOL GIVEN, TELE SR WITH TACHYCARDIA WHEN UP TO [facility], NO CHANGE NOTED.
[2025-01-27] MEDS ORDERED: Diltiazem HCl 180 MG Cap.CD PO SCH (09:00)
[2025-01-27] MEDS ORDERED: APHEN325 M1 PO (11:42)
[2025-01-27] MEDS ORDERED: CLOPIDOGREL75 MG PO (11:43)
[2025-01-27] MEDS ORDERED: METF500 PO (11:44)
[2025-01-27] MEDS ORDERED: PANT40 PO (11:46)
--- NOTE | 2025-01-27 12:34 | NUR ---
"Spiritual Care | Pt. Request Pt. is sitting up on the side of her bed and welcomes my visit. Pt. is pleasant. Spouse is at bedside. Facilitated an introduction and a life review. IN the the process of identifying common community relationships, rapport is established. Pt. verbalized that she expects to be discharged this afternoon. COnsidered matters of estella and belief. Pt. displayed evidence of being uplifted and enacouraged by the visit. Prayed for Pt. Pt. verbalized gratitude fo rthe spiritual care visit."
--- NOTE | 2025-01-27 18:50 | NUR ---
END OF SHIFT PATIENT RESTING IN BED, A&OX4, ABLE TO MAKE NEEDS KNOWN. VISITED WITH TODAY AT BEDSIDE. 1 PERSON ASSIST WITH FWW TO BATHROOM AND CHAIR. HOPEFUL FOR DISCHARGE TOMORROW IF BP IS STABLE. STARTED BP MEDICATION TODAY ORDERED. NO OTHER CONCERNS FOR THIS SHIFT.
[2025-01-28 03:35] VITALS: BP 162/95
--- NOTE | 2025-01-28 04:10 | NUR ---
SHIFT SUMMARY PATIENT IS ALERT AND ORIENTED. PATIENT HAS HAD NO ACUTE EVENTS THIS SHIFT. VITAL SIGNS REVIEWED. PATIENT HAS COMPLAINED OF A HEADACHE AND MEDICATED PER EMAR. PATIENT HAS HAD NO COMPLAINTS OF SOB, NAUSEA, OR VOMITTING THIS SHIFT. NO EVENTS ON TELE. BED IN LOCKED AND LOWEST POSITION. CALL LIGHT IN PLACE.
[2025-01-28 05:17] LABS: BASOPHILS ABSOLUTE AUTO 0.08 K/mm3 (0.00-0.23); BASOPHILS PERCENT AUTO 1 % (0-2); EOSINOPHILS ABSOLUTE AUTO 0.24 K/mm3 (0.00-0.68); EOSINOPHILS PERCENT AUTO 4 % (0-6); Hematocrit 37.7 % (33.0-51.0); Hemoglobin 13.4 g/dL (11.5-16.0); IMMATURE GRAN ABSOLUTE AUTO 0.04 K/mm3 (0.00-0.10); IMMATURE GRAN PERCENT AUTO 1 % (0-1); LYMPHOCYTES ABSOLUTE AUTO 1.21 K/mm3 (0.84-5.20); LYMPHOCYTES PERCENT AUTO 18 % (21-46); MONOCYTES ABSOLUTE AUTO 0.75 K/mm3 (0.16-1.47); MONOCYTES PERCENT AUTO 11 % (4-13); Mean Corpuscular HGB Conc 35.5 g/dL (31.5-36.5); Mean Corpuscular Volume 92 fL (80-100); NEUTROPHILS ABSOLUTE AUTO 4.30 K/mm3 (1.96-9.15); NEUTROPHILS PERCENT AUTO 65 % (41-73); NRBC ABSOLUTE 0.00 K/mm3 (0.00-0.02); NRBC Auto 0.0 /100 WBC (0.0-0.2); Platelet Count 228 K/mm3 (150-400); RDW Coefficient Variation 14.3 % (11.7-14.2); RDW Standard Deviation 48.1 fL (35.1-46.3)
[2025-01-28 05:40] LABS: Alanine Aminotransfer (ALT/SGP 41.0 U/L (12-78); Albumin, Blood 3.8 g/dL (3.4-5.0); Albumin/Globulin Ratio 1.3 (0.8-1.8); Anion Gap 9.0 mmol/L (3-11); Aspartate Aminotrans (AST/SGOT 21.0 U/L (12-37); Bilirubin, Total 1.0 mg/dL (0.1-1.0); Blood Urea Nitrogen 10.0 mg/dL (8-24); CO2, Blood 28.0 mmol/L (21-32); Calcium, Blood 9.0 mg/dL (8.5-10.1); Chloride, Blood 99.0 mmol/L (98-108); Creatinine, Blood 0.57 mg/dL (0.40-1.00); Globulin, Blood 2.9 g/dL (2.2-4.0); Glucose, Blood 163.0 mg/dL (70-99); Magnesium, Blood 2.1 mg/dL (1.6-2.4); Phosphorus, Blood 4.0 mg/dL (2.5-4.9); Potassium, Blood 3.3 mmol/L (3.5-5.5); Sodium, Blood 133.0 mmol/L (136-145); Total Protein, Blood 6.7 g/dL (6.4-8.2)
[2025-01-28 07:15] VITALS: BP 150/97
[2025-01-28] MEDS ORDERED: Diltiazem HCl 300 MG Cap.CD PO SCH (09:00)
[2025-01-28] MEDS ORDERED: HYDR10 PO (10:00)
[2025-01-28] MEDS ORDERED: LOSA50 PO (10:06)
--- NOTE | 2025-01-28 13:20 | NUR ---
DISCHARGE NOTE PATIENT AT BEDSIDE WITH . DISCHARGE INSTRUCTIONS AND MEDICATIONS DISCUSSED. IV REMOVED. DISCUSSED NEW MEDICATION, DOSING AND FOLLOW UP APPOINTMENT QUESTIONS. ASSISTED PATIENT WITH DRESSING, PATIENT WHEELED OUT TO RIDE BY MEDICAL STAFF. PATIENT AND DENIED ANY FURTHER QUESTIONS.
== END 2025-01-28 12:32 | disposition home health service (06) ==
LOC: ER 04:29 → MEDS 04:30 → ENPENDDIS 01-27 10:46 → MEDS 01-28 12:32
PROVIDERS: Emergency Medicine; Hospitalist; ADMIT Internal Medicine
DX: I63.511 Cerebral infarction due to unspecified occlusion or stenosis of right middle cerebral artery (principal); R47.1 Dysarthria and anarthria; I10 Essential (primary) hypertension; E78.5 Hyperlipidemia, unspecified; E03.9 Hypothyroidism, unspecified; G47.00 Insomnia, unspecified; K21.9 Gastro-esophageal reflux disease without esophagitis; Z79.82 Long term (current) use of aspirin
CPT/HCPCS: 36415; 70450; 70551; 80053; 80061; 81003; 82947; 83735; 84100; 84484; 85025; 92610; 93005; 93010; 93306; 96374; 97110; 97112; 97116; 97162; 97165; 97530; 97535; 99285-25; A9270; G0378; J2060